=== PATIENT | female | born 1950 | race Caucasian/White ===

== ENCOUNTER 2017-01-22 14:51 | Emergency (ER) | payer OTHER ==
[~2017-01-22] VITALS: Ht 154.9 cm; Wt 63.5 kg
--- NOTE | ~2017-01-22 | CR58 ---
[facility]. [facility] A Service of [facility] & [facility] RADIOLOGY TEXT RESULTS PATIENT: ETHAN RIOJAS LOCATION: SED : 46 UNIT #: [id number] AGE: [address]: Lisandra Cervantes SEX: F ORDER DR: [id number] [address] [address] [id number] E MR#: [id number] Acc #: [id number] NAME: ETHAN RIOJAS : 1950 SEX: F STUDY DATE/TIME: 01/22/2017 15:19 UNIT: SED ROOM: STUDY DESCRIPTION: CR Cervical Spine 2 or 3 Views Attending Physician: Lisandra Cervantes Pa-C Ordering Physician: Lisandra Cervantes Pa-C Primary Care Physician: Francisco Shepherd M.D. MEDICAL IMAGING REPORT This report is preliminary unless electronic signature is present. EXAM C-spine 3 views HISTORY 66-year-old female complains of neck pain, pulled muscle in back last Jasmin playing volleyball and pool. FINDINGS Routine views of the cervical spine demonstrate C5-6, C6-7 degenerative disc disease and multilevel facet arthropathy. No fracture or malalignment. Prevertebral soft tissues appear normal. Atlantoaxial joint unremarkable. The upper thorax appears normal. IMPRESSION Moderate multilevel degenerative disc disease most pronounced C5-6 and C6-7 as well as multilevel facet arthropathy mid cervical spine. Dictated by... Thu Lopez M.D. THIS IS AN ELECTRONICALLY VERIFIED REPORT Thu Lopez M.D. at 01/23/2017 7:15 AM MYRA/elbert TD: 01/23/2017 02:15 JOB #: [id number] MEDICAL IMAGING REPORT Page 1 of 1
[~2017-01-22 14:51] MED LIST: ALBUTEROL17 GM INH; ASPIRIN81 M1 PO; ASPIRIN81 M2 PO; ASPIRIN81 MG PO; CLARITIN D PO; ESTRADIOL0.5 MG PO; HI-CAL500 M1 PO; HORMONE PILL; LEVAQUIN; METOPROLOL PO; MULTI VITAMIN1 EACH PO; NASONEX17 GM; PREDNISONE PO; PREMARIN0.3 MG PO; TOPROL XL100 MG PO; ZOVIRAX400 MG PO; ZOVIRAX800 MG PO; [UNRECOGNIZED DRUG - OTHER]; [UNRECOGNIZED DRUG - REMARK]
[2017-01-22] MEDS ORDERED: CLARITIN10 M4 (14:59)
[2017-01-22] MEDS ORDERED: TOPROL XL50 MG (14:59)
[2017-01-22] MEDS ORDERED: ESTROGEN (14:59)
[2017-01-22] MEDS ORDERED: ASPIRIN81 M2 (15:00)
[2017-01-22] MEDS ORDERED: VIT B-12 (15:00)
[2017-01-22] MEDS ORDERED: MULTI VITAMIN1 EACH (15:00)
[2017-01-22] MEDS ORDERED: LIPITOR (15:00)
[2017-01-22] MEDS ORDERED: FISH OIL300 MG (15:00)
[2017-01-22] MEDS ORDERED: ALBUTEROL20 ml INH (15:15)
== END 2017-01-22 16:10 | disposition home or self-care (01) ==
LOC: SED 14:51
DX: S16.1XXA Strain of muscle, fascia and tendon at neck level, initial encounter (principal); I10 Essential (primary) hypertension; E78.5 Hyperlipidemia, unspecified; Z90.710 Acquired absence of both cervix and uterus; F17.210 Nicotine dependence, cigarettes, uncomplicated; Z88.1 Allergy status to other antibiotic agents; Z79.899 Other long term (current) drug therapy; X50.0XXA Overexertion from strenuous movement or load, initial encounter
CPT/HCPCS: 72040; 99283